=== PATIENT | female | born 1960 | race Two or more races ===

== ENCOUNTER 2018-12-23 19:12 | Emergency (ER) | payer OTHER ==
[2018-12-23 19:47] VITALS: BP 120/78; PULSE 104; TEMP 98.3; BMI 32.9
[2018-12-23] MEDS ORDERED: diphenhydrAMINE HCL 50 MG CAPSULE PO ONE (20:10)
[2018-12-23] MEDS ORDERED: predniSONE 20 MG TABLET (UD) PO ONE (20:11)
--- NOTE | 2018-12-23 20:15 | PDOC ---
History of Present Illness - General Chief Complaint: Rash Stated Complaint: RASH & SOB Time Seen by Provider: 12/23/18 19:29 - History of Present Illness Initial Comments: 12/23/18 21:31 58yo F no MH presents from home c/o arm rash x2 days. Rash appeared yesterday as big red round circles and then became small white fluid-filled bumps with surrounding redness, very itchy, not painful, spreading. Pt tried cortisone cream, triple antibiotic cream, benadryl, and ice without improvement. Endorses mild nausea and shortness of breath today. Denies F/C, vomiting, CP, swelling of face, difficulty swallowing or speaking, rash anywhere else on body, new detergents or linens, any other changes in life. Pt has no hx of allergies or allergic reactions until 1 year ago. 1 year ago pt moved into new apartment ( same apt as today) and she developed a similar rash on her L leg. She believed it was bites and it went away on its own. 1 month ago she again developed the rash on her L leg. She initially thought it was bites, but then her PCP thought it was a fungus and prescribed her a cream without improvement, and then an urgent care thought it was cellulitis and gave her Clindamycin and it cleared up with 7 days of Clindamycin, disappearing 1 week ago. Then this rash appeared 2 days ago. Pt is most concerned about the rash and not having a cause. Past History - Past Medical History Allergies/Adverse Reactions: Allergies Allergy/AdvReac Type Severity Reaction Status Date / Time Penicillins Allergy Unknown Verified 12/23/18 20:14 Sulfa (Sulfonamide Allergy Unknown Verified 12/23/18 20:14 Antibiotics) Home Medications: Ambulatory Orders Methylprednisolone [Medrol Dose Barry] 4 mg PO ASDIR #21 tablet 12/23/18 COPD: No Other medical history: CELLULITIS - Suicide/Smoking/Psychosocial Hx Smoking History: Never smoked Hx Alcohol Use: Yes (SOCIAL) Drug/Substance Use Hx: No Review of Systems - Review of Systems Comments:: 12/23/18 21:42 Constitutional: Negative for chills, fever, fatigue. HENT: Negative for sore throat, rhinorrhea, congestion. Eyes: Negative for visual disturbance. Respiratory: Positive for shortness of breath. Negative for cough, and wheezing. Cardiovascular: Negative for chest pain, palpitations, and leg swelling. Gastrointestinal: Negative for abdominal pain, blood in stool, constipation, diarrhea, nausea, and vomiting. Genitourinary: Negative for dysuria, flank pain, and hematuria. Musculoskeletal: Negative for myalgias, back pain, and neck pain. Skin: Positive for LUE rash. Neurological: Negative for light-headedness, dizziness, syncope, weakness, numbness and headaches. Psychiatric/Behavioral: Negative for behavioral problems and confusion. *Physical Exam - Vital Signs Last Vital Signs Temp Pulse Resp BP Pulse Ox 98.3 F 104 H 18 120/78 98 12/23/18 19:13 12/23/18 19:13 12/23/18 19:13 12/23/18 19:13 12/23/18 19:13 - Physical Exam Comments: 12/23/18 21:41 Gen: Alert, NAD, comfortable-appearing. HEENT: PERRL, EOMI, MMM, NCAT. No conjunctival pallor. Sclera are non-icteric. Oropharynx is clear. CV: Regular rate and rhythm. No murmurs, rubs, or gallops. PULM: No resp distress. CTAB, no wheezes, rales, or rhonchi. ABD: soft, NT/ND, no rebound tenderness or guarding, no CVA tenderness. BACK: No TTP of c/t/l-spine. No step-offs or deformities. MSK: No bony deformities. 2+ pulses in all extremities. NEURO: AAOx3. PERRL. No gross CN deficits. Strength and sensation grossly intact throughout. EXTREMITIES: No cyanosis. No clubbing. No LE edema. No calf tenderness. PSYCH: Normal mood and thought pattern. SKIN: Warm and dry. Normal capillary refill. No jaundice. Multiple white 0.5cm fluid-filled pustules on medial LUE with surrounding erythema, tense skin, no warmth, mild edema. Medical Decision Making - Medical Decision Making 12/23/18 21:38 58yo F no MH presents from home c/o arm rash x2 days, similar to LLE rash 1 year ago (resolved on own) and 1 month ago (resolved with Clindamycin). Multiple white 0.5cm fluid-filled pustules on medial LUE with surrounding erythema, tense skin, no warmth, mild edema; neurovascularly intact. Pruritus, appearance of rash, and lack of purulence or pain suggest allergic reaction as etiology -- Benadryl, Prednisone, and derm referral. Hemodynamically stable, no s/s concerning for anaphylaxis. No crepitus, fever, or pain concerning for necrotizing fasciitis or infection. -Benadryl and Prednisone for allergic reaction -Dispo: d/c home w/dermatology f/u, Benadryl, and Medrol dose pack *DC/Admit/Observation/Transfer Diagnosis at time of Disposition: Allergic reaction - Discharge Dispostion Disposition: HOME Condition at time of disposition: Good Decision to Admit order: No - Prescriptions Prescriptions: Methylprednisolone [Medrol Dose Barry] 4 mg PO ASDIR #21 tablet - Referrals Referrals: Agata Zamora MD [Staff Physician] - Demario Judd [Primary Care Provider] - Osiris Funes [Staff Physician] - - Patient Instructions Printed Discharge Instructions: DI for General Allergic Reactions Additional Instructions: You have been seen in the Emergency Department for your rash. Your physical exam shows no signs concerning for an emergent condition such as anaphylaxis. Your rash is most likely an allergic reaction. We have given you Benadryl and Prednisone to help with the itching and inflammation. We have also prescribed you Methylprednisolone - take as directed on bottle. Take over the counter Benadryl according to the directions as needed for itching. For further evaluation of the cause of the rash, follow-up with a film replacement orderer. Call your insurance to find one that is covered. Return to the ED immediately if you experience difficulty breathing or swallowing, swelling of the mouth or face, chest pain, dizziness, numbness/ tingling, or any other new or worsening symptom. - Post Discharge Activity
[2018-12-23] MEDS ORDERED: diphenhydrAMINE HCL 25 MG CAPSULE (FP) PO ONE (20:16)
--- NOTE | 2018-12-23 20:25 | PDOC ---
Documentation entered by Daniella Downing SCRIBE, acting as scribe for Candice Munoz MD. Candice Munoz MD: This documentation has been prepared by the Chang cat Aiswarya, SCRIBE, under my direction and personally reviewed by me in its entirety. I confirm that the documentation accurately reflects all work, treatment, procedures, and medical decision making performed by me. Attending Attestation - Resident Resident Name: Jennie Duvall - ED Attending Attestation I have performed the following: I have examined & evaluated the patient, The case was reviewed & discussed with the resident, I agree w/resident's findings & plan, Exceptions are as noted - HPI HPI: 12/23/18 20:19 The patient is a 58 year old female, with no significant PMH, who presents to the emergency department with a rash that occurred 2 days ago. She reports moving into a new apartment 1 year ago and notes having a similar rash to the left leg. The patient states rash came back to the left leg 1 or 2 months ago and relief noted with clindamycin. Patient state same rash has currently appeared to the left upper arm, pruritic and erythemic in nature. The patient states no relief with hydrocortisone cream and Benadryl. Patient also states she endorses associated symptoms of nausea and SOB. The patient denies any new bite or new allergies. Denies any numbness or tingling. PAST MEDICAL HISTORY: no significant history PAST SURGICAL HISTORY: no significant history FAMILY HISTORY: no pertinent history SOCIAL HISTORY: Pt lives with family and is employed. MEDICATIONS: reviewed ALLERGIES: As per nursing notes Adult ROS General: No fevers or chills, no weakness, no weight loss HEENT: No change in vision. No sore throat,. No ear pain CardioVascular: No chest pain or shortness of breath Respiratory:No cough, or wheezing. Gastrointestinal: no nausea, vomiting, diarrhea or constipation, No rectal bleeding Genitourinary: No dysuria, hematuria, or frequency Musculoskeletal: No joint or muscle pain or swelling Neurologic: No headache, vertigo, dizziness or loss of consciousness Psychiatric: nor depression Skin: +left arm rash Endocrine: no increased thirst or abnormal weight change Allergic: no skin or latex allergy All other systems reviewed and normal - Physicial Exam PE: 12/23/18 20:27 Basic PE GENERAL: The patient is awake, alert, and fully oriented, in no acute distress. HEAD: Normal with no signs of trauma. EYES: Pupils equal, round and reactive to light, extraocular movements intact, sclera anicteric, conjunctiva clear. EXTREMITIES: Normal range of motion, no edema. NEUROLOGICAL: Normal speech, normal gait. PSYCH: Normal mood, normal affect. SKIN: +Left upper extremity multiple area of macular with some central small fluid filled vesicles. Some areas of confluence. No tenderness on palpation. Slightly increased warmth to touch. No discharge from vesicules. - Medical Decision Making 12/23/18 20:24 Assessment plan: This is a 58-year-old female who comes in with a rash of her left upper extremity. It appears to be ALLERGIC in nature as it is intensely pruritic. There is some slight increase in warmth and some erythema associated with it however there is no pain associated with it. There are some tiny what appear to be fluid-filled vesicles that do not appear to be purulent. Patient started on Benadryl and prednisone discharged with a Medrol Dosepak and will follow-up with a revenue cycle analyst
== END 2018-12-23 20:30 | disposition home or self-care (01) ==
LOC: SUPCPDRO 19:12 → FER 19:12
DX: T78.40XA Allergy, unspecified, initial encounter (principal); X58.XXXA Exposure to other specified factors, initial encounter
CPT/HCPCS: 99282-25